=== PATIENT | female | born 1935 | race Caucasian/White ===

== ENCOUNTER 2020-10-12 04:42 | Day surgery (SDC) | payer OTHER ==
[2020-10-09 16:50] VITALS: BMI 21.2
[2020-10-12 08:44] VITALS: TEMP 98.5
[2020-10-12 09:10] VITALS: BP 116/67; PULSE 60
== END 2020-10-12 10:17 | disposition home or self-care (01) ==
LOC: JASU-ENDO 04:42
PROVIDERS: ATTEND Internal Medicine Gastroenterology
PROC: 0DB68ZX Excision of Stomach, Via Natural or Artificial Opening Endoscopic, Diagnostic (ICD-10-PCS; 2020-10-12)
PROC: 0DB38ZX Excision of Lower Esophagus, Via Natural or Artificial Opening Endoscopic, Diagnostic (ICD-10-PCS; 2020-10-12)
PROC: 0DJD8ZZ Inspection of Lower Intestinal Tract, Via Natural or Artificial Opening Endoscopic (ICD-10-PCS; 2020-10-12)
PROC: 0DB98ZX Excision of Duodenum, Via Natural or Artificial Opening Endoscopic, Diagnostic (ICD-10-PCS; principal; 2020-10-12 08:00)
DX: Z12.11 Encounter for screening for malignant neoplasm of colon (principal); K63.89 Other specified diseases of intestine; K55.20 Angiodysplasia of colon without hemorrhage; K64.8 Other hemorrhoids; K21.00 Gastro-esophageal reflux disease with esophagitis, without bleeding; K29.80 Duodenitis without bleeding; K29.50 Unspecified chronic gastritis without bleeding
CPT/HCPCS: 43239; G0121; 88305-TC; 88342-TC